=== PATIENT | male | born 2005 | race Caucasian/White ===

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

== ENCOUNTER 2023-04-04 16:13 | Emergency (ER) | payer OTHER, SELFPAY ==
[2023-04-04 16:14] VITALS: BP 125/79; PULSE 74; RESP 19; TEMP 36.2; O2SAT 100; BMI 21.2
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
--- NOTE | 2023-04-04 19:49 | ED.RN ---
This nurse was triage room when patient and mother left note on desk on sign in paper. Requested for them to place sign in sheet in rack. Mother abruptly and loudly states OH NO. We are not signing in. This is a note telling you we are leaving and to call us with results. We are tired of waiting and don't have time for this. Patient and mother both appear hostile and briskly exit department before this nurse could offer response.
== END 2023-04-04 22:45 | disposition left against medical advice (07) ==
PROVIDERS: Emergency Provider Emergency Medicine; Visit Provider Emergency Medicine
DX: S02.40CA Maxillary fracture, right side, initial encounter for closed fracture (principal); S02.31XA Fracture of orbital floor, right side, initial encounter for closed fracture; W50.0XXA Accidental hit or strike by another person, initial encounter
CPT/HCPCS: 70486; 99282

== ENCOUNTER → 2023-04-04 | Outpatient (CLI) | payer OTHER, SELFPAY ==
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
== END | disposition home or self-care (01) ==
PROVIDERS: Referring Provider Physician Assistant; Visit Provider Physician Assistant
DX: S05.11XA Contusion of eyeball and orbital tissues, right eye, initial encounter (principal)
CPT/HCPCS: 70200